=== PATIENT | male | born 1955 | race Caucasian/White ===

== ENCOUNTER → 2017-12-14 | Outpatient (CLI) | payer BC, OTHER ==
[2017-12-14 16:00] LABS: KETONES,URINE NEGATIVE (NEGATIVE); LEUKOCYTE ESTERASE ,URINE TRACE (NEGATIVE); NITRITE,URINE NEGATIVE (NEGATIVE); URINE UROBILINOGEN 8 mg/dL (0.2 - 1)
[2017-12-14 16:03] LABS: BILIRUBIN,URINE 3+ (NEGATIVE); CLARITY,URINE CLEAR (CLEAR); COLOR,URINE AMBER (YELLOW); PROTEIN,URINE DIPSTICK 1+ (NEGATIVE)
[2017-12-14 16:15] LABS: EPITHELIAL CELLS,URINE FEW /LPF
[2017-12-14 16:17] LABS: AMORPHOUS SEDIMENT,URINE FEW (FEW); BACTERIA,URINE FEW /HPF; RBC,URINE 0-5 /HPF (0-5); WBC,URINE (MAN) 0-5 /HPF (0-5)
== END ==
LOC: LAB 15:22
PROVIDERS: ATTEND Internal Medicine
DX: Z94.4 Liver transplant status (principal); R19.7 Diarrhea, unspecified; D89.9 Disorder involving the immune mechanism, unspecified
CPT/HCPCS: 81001; 87045; 87086; 87177; 87328; 87493